=== PATIENT | female | born 1960 | race African-American/Black ===

== ENCOUNTER 2019-06-20 16:31 | Emergency (ER) | payer MEDICARE ==
[2019-06-20 16:56] VITALS: BP 134/72
[2019-06-20] MEDS ORDERED: ASPIRIN 81 MG TABLET, CHEWABLE PO ONE (17:10)
--- NOTE | 2019-06-20 17:10 | ER Document Report ---
ED Medical Screen (RME) - General Chief Complaint: Chest Pain Stated Complaint: CHEST PAIN, RIGHT SHOULDER DISCOMFORT Time Seen by Provider: 06/20/19 17:05 Primary Care Provider: KATT MITCHELL MD [Primary Care Provider] - Follow up as needed Mode of Arrival: Ambulatory Information source: Patient Notes: 58-year-old female presented to ED for chest pain starting on Monday on the right side of her chest up to her shoulder under her right breast and up to her neck. She states it did not get better until Monday evening and she saw her primary care doctor on Monday. She is on gabapentin and Cymbalta for her chronic pain. Pain level is 2/5. She states it is not more painful with movement but is more painful with deep breath she states that there is no in crease in pain with movement or with palpation. She does not smoke drink or use any illicit drugs. She has a history of high blood pressure sarcoidosis neuropathy and degenerative disc disease. She does not have any other cardiac problems. I have greeted and performed a rapid initial assessment of this patient. A comprehensive ED assessment and evaluation of the patient, analysis of test results and completion of medical decision making process will be conducted by an additional ED providers. TRAVEL OUTSIDE OF THE [place] IN LAST 30 DAYS: No - Related Data Allergies/Adverse Reactions: Sulfa (Sulfonamide Antibiotics) Allergy (Verified 06/20/19 17:05) sulfamethoxazole [From Bactrim] Allergy (Verified 06/20/19 17:05) TONGUE SWELL, THROAT SWELL trimethoprim [From Bactrim] Allergy (Verified 06/20/19 17:05) TONGUE SWELL, THROAT SWELL Past Medical History - Past Medical History Cardiac Medical History: Reports: Hx Hypertension - MICARDIS Denies: Hx Heart Attack Pulmonary Medical History: Denies: Hx Asthma Neurological Medical History: Denies: Hx Cerebrovascular Accident, Hx Seizures GI Medical History: Denies: Hx Hepatitis, Hx Hiatal Hernia, Hx Ulcer Infectious Medical History: Denies: Hx Hepatitis Past Surgical History: Reports: Hx Hysterectomy. Denies: Hx Mastectomy, Hx Open Heart Surgery, Hx Pacemaker Physical Exam - Vital signs Vitals: Temp Pulse Resp BP Pulse Ox 98 F 77 18 134/72 H 100 06/20/19 16:55 06/20/19 16:55 06/20/19 16:55 06/20/19 16:55 06/20/19 16:55 Course - Vital Signs Vital signs: Temp Pulse Resp BP Pulse Ox 98 F 77 18 134/72 H 100 06/20/19 16:55 06/20/19 16:55 06/20/19 16:55 06/20/19 16:55 06/20/19 16:55 Doctor's Discharge - Discharge Referrals: KATT MITCHELL MD [Primary Care Provider] - Follow up as needed
--- NOTE | 2019-06-20 18:09 | RADIOLOGY REPORT (SQ) ---
EXAM DESCRIPTION: CHEST 2 VIEWS COMPLETED DATE/TIME: 06/20/2019 5:55 pm REASON FOR STUDY: chest pain COMPARISON: 05/06/2011 TECHNIQUE: Frontal and lateral radiographic views of the chest acquired. NUMBER OF VIEWS: Two view. LIMITATIONS: None. FINDINGS: LUNGS AND PLEURA: No pneumothorax. No consolidation or pleural effusion. MEDIASTINUM AND HILAR STRUCTURES: Stable. HEART AND VASCULAR STRUCTURES: Stable. BONES: No acute findings. HARDWARE: None in the chest. OTHER: No other significant finding. IMPRESSION: NO ACUTE FINDINGS. TECHNICAL DOCUMENTATION: JOB ID: [id number] 2010 [employer]- All Rights Reserved Reading location - IP/workstation name: [email or web address]
[2019-06-20 18:12] LABS: ABSOLUTE BASOPHILS # (AUTO) 0.1 10^3/uL (0.0-0.2); ABSOLUTE EOSINOPHILS # (AUTO) 0.3 10^3/uL (0.0-0.6); ABSOLUTE LYMPHOCYTES (AUTO) 1.8 10^3/uL (0.5-4.7); ABSOLUTE MONOCYTES (AUTO) 0.8 10^3/uL (0.1-1.4); ABSOLUTE NEUT (AUTO) 4.8 10^3/uL (1.7-8.2); BASOPHILS % (AUTO) 1.3 % (0-2); EOSINOPHILS % (AUTO) 3.7 % (0-6); HEMOGLOBIN 12.5 g/dL (12.0-15.5); MEAN CORPUSCULAR HGB CONC 33.8 g/dL (32.0-36.0); MEAN CORPUSCULAR VOLUME 89 fl (80-97); PLATELET COUNT 331 10^3/uL (150-450); RED BLOOD COUNT 4.18 10^6/uL (3.72-5.28); RED CELL DISTRIBUTION WIDTH 13.6 % (11.5-14.0); TOTAL CELLS COUNTED % (AUTO) 100 %; WHITE BLOOD COUNT 7.7 10^3/uL (4.0-10.5)
[2019-06-20 18:18] LABS: PROTHROMBIN TIME 13.2 SEC (11.4-15.4)
[2019-06-20 18:19] LABS: PARTIAL THROMBOPLASTIN TIME 29.2 SEC (23.5-35.8)
[2019-06-20 18:36] LABS: ALBUMIN 4.2 g/dL (3.5-5.0); ALKALINE PHOSPHATASE 70 U/L (38-126); ANION GAP 8 (5-19); ASPARTATE AMINO TRANSFERASE 32 U/L (14-36); BILIRUBIN,DIRECT 0.1 mg/dL (0.0-0.4); BILIRUBIN,TOTAL 0.3 mg/dL (0.2-1.3); BLOOD UREA NITROGEN 13 mg/dL (7-20); CALCIUM 9.5 mg/dL (8.4-10.2); CARBON DIOXIDE 30 mmol/L (22-30); CHLORIDE 102 mmol/L (98-107); CREATINE KINASE 161 U/L (30-135); GLUCOSE 84 mg/dL (75-110); POTASSIUM 3.7 mmol/L (3.6-5.0); TOTAL PROTEIN 7.8 g/dL (6.3-8.2)
[2019-06-20 18:44] LABS: CREATINE KINASE MB 2.53 ng/mL (<4.55); NT PRO BNP 74 pg/mL (<125)
[2019-06-20 18:46] LABS: TROPONIN I < 0.012 ng/mL
--- NOTE | 2019-06-21 06:34 | EKG REPORT ---
SEVERITY:- OTHERWISE NORMAL ECG - SINUS RHYTHM BORDERLINE RIGHT AXIS DEVIATION : Confirmed by: Juan Lanza MD 21-Jun-2019 06:34:24
== END 2019-06-20 19:43 | disposition left against medical advice (07) ==
LOC: ER 16:31
DX: R07.9 Chest pain, unspecified (principal); M25.511 Pain in right shoulder; I10 Essential (primary) hypertension; G89.29 Other chronic pain; Z88.2 Allergy status to sulfonamides; Z88.3 Allergy status to other anti-infective agents; Z90.710 Acquired absence of both cervix and uterus
CPT/HCPCS: 36415; 82553; 82550; 83735; 84443; 85025; 85610; 85730; 80053; 84484; 83880; 71046; A9270; 93005; 93010

== ENCOUNTER → 2019-06-21 | Outpatient (CLI) | payer MEDICARE, OTHER ==
[2019-06-21 15:35] LABS: CREATINE KINASE MB 2.17 ng/mL (<4.55)
[2019-06-21 15:36] LABS: TROPONIN I < 0.012 ng/mL
== END ==
LOC: OD 14:36
PROVIDERS: ATTEND Internal Medicine Geriatric Medicine
DX: R07.9 Chest pain, unspecified (principal)
CPT/HCPCS: 36415; 82550; 82553; 84484

== ENCOUNTER 2019-09-28 04:40 | Emergency (ER) | payer MEDICARE, OTHER ==
--- NOTE | 2019-09-28 05:19 | ER Document Report ---
ED Medical Screen (RME) - General Chief Complaint: Eye Pain Stated Complaint: RIGHT EYE PAIN Time Seen by Provider: 09/28/19 05:05 Primary Care Provider: MARISA HOLLINS MD [ACTIVE STAFF] - Follow up as needed Notes: 59-year-old female with chief complaint of right eye discomfort, she states she has a burning sensation and she is starting to get double vision in her right eye. She states that her told her that it looked like there was "something coming out of the inside of her eye", she states that he also told her that it was getting larger as time went on since she woke up this morning a couple of hours ago. She denies trauma, visual loss or change other than the double vision, headache, or any other complaints at this time. She states she has had shunts placed in the back of both eyes secondary to increased intraocular pressure, she has had cataract surgery in both eyes, she follows with local assistant professor nurse education Dr. Ely. TRAVEL OUTSIDE OF THE [place] IN LAST 30 DAYS: No - Related Data Allergies/Adverse Reactions: Sulfa (Sulfonamide Antibiotics) Allergy (Verified 06/20/19 17:05) sulfamethoxazole [From Bactrim] Allergy (Verified 06/20/19 17:05) TONGUE SWELL, THROAT SWELL trimethoprim [From Bactrim] Allergy (Verified 06/20/19 17:05) TONGUE SWELL, THROAT SWELL Home Medications: eye drops Past Medical History - Past Medical History Cardiac Medical History: Reports: Hx Hypertension - MICARDIS Denies: Hx Heart Attack Pulmonary Medical History: Denies: Hx Asthma Neurological Medical History: Denies: Hx Cerebrovascular Accident, Hx Seizures GI Medical History: Denies: Hx Hepatitis, Hx Hiatal Hernia, Hx Ulcer Infectious Medical History: Denies: Hx Hepatitis Past Surgical History: Reports: Hx Hysterectomy. Denies: Hx Mastectomy, Hx Open Heart Surgery, Hx Pacemaker Physical Exam - Vital signs Vitals: Temp Pulse Resp BP Pulse Ox 97.8 F 66 16 147/91 H 99 09/28/19 04:44 09/28/19 04:44 09/28/19 04:44 09/28/19 04:44 09/28/19 04:44 - HEENT Eyes: Other - Over the medial aspect of the right eye there appears to be blood protruding and a large amount from the area of the conjunctive a and it appears to be starting to spread over the left lateral aspect of the cornea. Appears to be bloody chemosis. The pupil is still reactive, EOMs are still intact but patient reports some discomfort with this movement. Left eye is unremarkable. No hyphema is noted. Course - Re-evaluation Re-evalutation: I have greeted and performed a rapid initial assessment of this patient. A comprehensive ED assessment and evaluation of the patient, analysis of test results and completion of the medical decision making process will be conducted by additional ED providers. - Vital Signs Vital signs: Temp Pulse Resp BP Pulse Ox 97.8 F 72 16 130/80 H 100 09/28/19 04:44 09/28/19 06:21 09/28/19 06:21 09/28/19 06:21 09/28/19 06:21 Doctor's Discharge - Discharge Clinical Impression: Chemosis of right conjunctiva Subconjunctival hemorrhage Qualifiers: Laterality: right Qualified Code(s): H11.31 - Conjunctival hemorrhage, right eye Condition: Stable Disposition: HOME, SELF-CARE Additional Instructions: I spoke with Dr. Carin Ely, your assistant professor nurse education. Your pressures are 16 and 18 on repeat in your right eye and 16 on the left eye. Please proceed directly to her office, she will be meeting you there at 7 AM. Please wait for her if she has not yet arrived at 7 AM. You must be evaluated by her this morning. Referrals: MARISA HOLLINS MD [ACTIVE STAFF] - Follow up as needed
[2019-09-28 06:22] VITALS: BP 130/80
--- NOTE | 2019-09-28 07:21 | ER Document Report ---
ED Eye Complaint - General Chief Complaint: Eye Pain Stated Complaint: RIGHT EYE PAIN Time Seen by Provider: 09/28/19 05:05 Primary Care Provider: MARISA HOLLINS MD [ACTIVE STAFF] - Follow up as needed Notes: Patient is a 59-year-old female with chief complaint of right eye discomfort, she states she has a burning sensation and she is starting to get double vision in her right eye. She states that her told her that it looked like there was "something coming out of the inside of her eye", she states that he also told her that it was getting larger as time went on since she woke up this morning a couple of hours ago. She denies trauma, visual loss or change other than the double vision, headache, or any other complaints at this time. She states she has had shunts placed in the back of both eyes secondary to increased intraocular pressure, she has had cataract surgery in both eyes, she follows with local dental receptionist Dr. Ely. TRAVEL OUTSIDE OF THE [place] IN LAST 30 DAYS: No - Related Data Allergies/Adverse Reactions: Sulfa (Sulfonamide Antibiotics) Allergy (Verified 06/20/19 17:05) sulfamethoxazole [From Bactrim] Allergy (Verified 06/20/19 17:05) TONGUE SWELL, THROAT SWELL trimethoprim [From Bactrim] Allergy (Verified 06/20/19 17:05) TONGUE SWELL, THROAT SWELL Home Medications: eye drops Past Medical History - General Information source: Patient, Relative - Social History Smoking Status: Never Smoker Frequency of alcohol use: None Lives with: Family Family History: Reviewed & Not Pertinent Patient has suicidal ideation: No Patient has homicidal ideation: No - Past Medical History Cardiac Medical History: Reports: Hx Hypertension - MICARDIS Denies: Hx Heart Attack Pulmonary Medical History: Denies: Hx Asthma Neurological Medical History: Denies: Hx Cerebrovascular Accident, Hx Seizures GI Medical History: Denies: Hx Hepatitis, Hx Hiatal Hernia, Hx Ulcer Infectious Medical History: Denies: Hx Hepatitis Past Surgical History: Reports: Hx Hysterectomy. Denies: Hx Mastectomy, Hx Open Heart Surgery, Hx Pacemaker - Immunizations Immunizations up to date: Yes Hx Diphtheria, Pertussis, Tetanus Vaccination: Yes Review of Systems - Review of Systems Constitutional: No symptoms reported EENT: See HPI Cardiovascular: No symptoms reported Respiratory: No symptoms reported Gastrointestinal: No symptoms reported Genitourinary: No symptoms reported Female Genitourinary: No symptoms reported Musculoskeletal: No symptoms reported Skin: No symptoms reported Hematologic/Lymphatic: No symptoms reported Neurological/Psychological: No symptoms reported Physical Exam - Vital signs Vitals: Temp Pulse Resp BP Pulse Ox 97.8 F 66 16 147/91 H 99 09/28/19 04:44 09/28/19 04:44 09/28/19 04:44 09/28/19 04:44 09/28/19 04:44 - Notes Notes: GENERAL: Alert, interacts well. No acute distress. HEAD: Normocephalic, atraumatic. EYES: Pupils equal, round, and reactive to light. Extraocular movements intact. Left sclera normal but cornea is slightly hazy. Right sclera shows large amount of some conjunctival hemorrhage medially with bloody chemosis surrounding and pressing slightly on the corneal area medially as well. There was a single tear mixed with blood that came out of the medial aspect as well at the medial canthus. There is no discharge. No superficial foreign body. ENT: Oral mucosa moist, tongue midline. Oropharynx unremarkable. LUNGS: Clear to auscultation bilaterally, no wheezes, rales, or rhonchi. No respiratory distress. HEART: Regular rate and rhythm. No murmur ABDOMEN: Soft, non-tender. Non-distended. EXTREMITIES: Moves all 4 extremities spontaneously. No edema, normal radial and dorsalis pedis pulses bilaterally. No cyanosis. BACK: no cervical, thoracic, lumbar midline tenderness. No saddle anesthesia, normal distal neurovascular exam. Moves all extremities in full range of motion. NEUROLOGICAL: Alert and oriented x3. Normal speech. Cranial nerves II through XII grossly intact. PSYCH: Normal affect, normal mood. SKIN: Warm, dry, normal turgor. No rashes or lesions noted. - HEENT Visual acuity- Right eye: 20/200 Visual acuity- Left eye: 20/200 Visual acuity- Both eyes: 20/200 Corrective lenses worn: No Course - Re-evaluation Re-evalutation: On exam patient has large amount of chemosis with subconjunctival hemorrhage. EOMs intact, pupils intact, no trauma, no concerning findings otherwise. Patient is reporting some double vision but she has poor vision at baseline reportedly. She does not report any loss of vision or blurred vision. Discussed with Dr. Crow, recommendation is immediate ophthalmology consult, patient does have a personal dental receptionist. I called and spoke with patient's dental receptionist Dr. Carin Ely. She requests intraocular pressures, these were performed showing 16 and 18 with 95% confidence on the right and 16 on the left. I called her back and reported these pressures, she states the patient needs to be evaluated by her as soon as possible, she states she needs her equipment in the office, she states she wants the patient to proceed to her office and she will be there at 7 AM to evaluate the patient. I discussed this with patient , they state they are very comfortable with this plan, they are very familiar with her office and they will be going there after discharge. Patient discharged with this plan. - Vital Signs Vital signs: Temp Pulse Resp BP Pulse Ox 97.8 F 72 16 130/80 H 100 09/28/19 04:44 09/28/19 06:21 09/28/19 06:21 09/28/19 06:21 09/28/19 06:21 Discharge - Discharge Clinical Impression: Chemosis of right conjunctiva Subconjunctival hemorrhage Qualifiers: Laterality: right Qualified Code(s): H11.31 - Conjunctival hemorrhage, right eye Condition: Stable Disposition: HOME, SELF-CARE Additional Instructions: I spoke with Dr. Carin Ely, your dental receptionist. Your pressures are 16 and 18 on repeat in your right eye and 16 on the left eye. Please proceed directly to her office, she will be meeting you there at 7 AM. Please wait for her if she has not yet arrived at 7 AM. You must be evaluated by her this morning. Referrals: MARISA HOLLINS MD [ACTIVE STAFF] - Follow up as needed
== END 2019-09-28 06:22 | disposition home or self-care (01) ==
LOC: ER 04:40
DX: H11.421 Conjunctival edema, right eye (principal); H11.31 Conjunctival hemorrhage, right eye; H57.11 Ocular pain, right eye; Z88.2 Allergy status to sulfonamides; Z88.8 Allergy status to other drugs, medicaments and biological substances; I10 Essential (primary) hypertension; Z79.899 Other long term (current) drug therapy
CPT/HCPCS: 99283

== ENCOUNTER → 2019-10-04 | Outpatient (CLI) | payer MEDICARE, OTHER ==
--- NOTE | 2019-10-04 10:01 | RADIOLOGY REPORT (SQ) ---
EXAM DESCRIPTION: U/S ABDOMEN LIMITED W/O DOP COMPLETED DATE/TIME: 10/04/2019 8:32 am REASON FOR STUDY: ABDOMINAL PAIN, EPIGASTRIC R10.13 EPIGASTRIC PAIN R07.9 CHEST PAIN, UNSPECIFIED COMPARISON: None. TECHNIQUE: Dynamic and static grayscale images acquired of the abdomen and recorded on PACS. Additio nal selected color Doppler and spectral images recorded. LIMITATIONS: None. FINDINGS: PANCREAS: The visualized portions of the pancreas appear normal. LIVER: Heterogeneous echotexture. There is no discernible mass. LIVER VASCULATURE: Hepatopetal flow within the portal veins. GALLBLADDER: The gallbladder wall measures 1 mm in thickness. There is no cholelithiasis, sludge or pericholecystic fluid. ULTRASOUND-DETECTED JERONIMO'S SIGN: Negative. INTRAHEPATIC DUCTS AND COMMON DUCT: The CBD measures 5 mm in diameter. The intrahepatic bile ducts a re normal in caliber. INFERIOR VENA CAVA: Patent. AORTA: No aneurysm. RIGHT KIDNEY: The right kidney measures 10.8 cm in length. There is no hydronephrosis. PERITONEAL AND RIGHT PLEURAL SPACE: No ascites or effusions. OTHER: No other findings. IMPRESSION: No acute abnormality of the right upper quadrant. TECHNICAL DOCUMENTATION: JOB ID: [id number] 2010 [employer]- All Rights Reserved Reading location - IP/workstation name: [email or web address]
== END ==
LOC: RAD 07:47
PROVIDERS: ATTEND Internal Medicine Gastroenterology
DX: R10.13 Epigastric pain (principal); R07.9 Chest pain, unspecified
CPT/HCPCS: 76705